=== PATIENT | female | born 1995 | race Hispanic/Latino ===

== ENCOUNTER 2017-12-07 22:43 | Emergency (ER) | payer BC ==
[2017-12-07] MEDS ORDERED: CHLORHEXIDINE GLUCONATE 4 % 15 ML UD TOP ONE (22:55)
[2017-12-07 23:02] VITALS: TEMP 99.1
--- NOTE | 2017-12-07 23:37 | ED.PDOC ---
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 Occurred: just prior to arrival Pain - Upper Extremity: moderate: Hand, right - finger nail right index finger Method of Injury: other - see hpi Improving Factors: rest Worsening Factors: movement Associated Symptoms: PAIN FINGER RT. INDEX Allergies/Adverse Reactions: Allergies NO KNOWN ALLERGY Allergy (Verified 12/07/17 23:02) Home Medications: Ambulatory Orders Cephalexin 1,000 mg PO BID 7 Days #30 cap 12/08/17 Review of Systems - Review of Systems Constitutional: States: no symptoms reported EENTM: States: no symptoms reported Respiratory: States: no symptoms reported Musculoskeletal: States: no symptoms reported Skin: States: see HPI Past Medical History (General) - Patient Medical History Hx Seizures: No Hx Stroke: No Hx Dementia: No Hx Asthma: No Hx of COPD: No Hx Cardiac Disorders: No Hx Congestive Heart Failure: No Hx Pacemaker: No Hx Hypertension: No Hx Thyroid Disease: No Hx Diabetes: No Hx Gastroesophageal Reflux: No Hx Renal Disease: No Hx Cancer: No Hx of HIV: No Hx Hepatitis C: No Hx MRSA: No Surgical History: no surgical history - Vaccination History Hx Tetanus, Diphtheria Vaccination: No - Social History Hx Alcohol Use: Yes - social - Female History Patient is a Female of Child Bearing Age (10 -59 yrs old): Yes Hx Last Menstrual Period: 11/09/17 Patient : No Family Medical History - Family History Mother Living Status: Still Living Physical Exam - Physical Exam General Appearance: Alert, Comfortable, No apparent distress Eyes, Ears, Nose, Throat Exam: normal ENT inspection Neck: supple Cardiovascular/Respiratory: regular rate, rhythm, no M/R/G, normal peripheral pulses, normal breath sounds Abdominal Exam: non-tender Back Exam: normal inspection, no CVA tenderness Elbow/Forearm Exam: normal inspection, no evidence of injury Wrist Exam: normal inspection, no evidence of injury Hand Exam: nail injury - avulsion fingernail right index finger, soft tissue tenderness Neuro/Tendon: normal sensation, normal motor functions, normal tendon functions , responds to pain, no evidence tendon injury Mental Status: alert, oriented x 3 Skin Exam: normal color, warm/dry Progress - Progress Progress: 12/08/17 00:21 Vital Signs - 8 hr 12/07/17 22:55 Temperature 99.1 F Pulse Rate [ 99 H monitor] Respiratory 16 Rate Blood Pressure 142/95 [Left Arm] O2 Sat by Pulse 98 Oximetry - EKG/XRAY/CT XRAY: right index finger -no fracture Departure - Departure Clinical Impression: Caught, crushed, jammed, or pinched between stationary objects, subsequent encounter, Avulsion of fingernail of right hand Time of Disposition: 00:23 Disposition: Discharge to Home or Self Care Condition: Good Departure Forms: ED Discharge - Pt. Copy, Patient Portal Self Enrollment Instructions: Nail Avulsion, Nail Avulsion (DC) Referrals: BRITTANY MOSQUERA MD [Primary Care Provider] - 1-2 Weeks Prescriptions: Cephalexin 1,000 mg PO BID 7 Days #30 cap Home Medications: Ambulatory Orders Cephalexin 1,000 mg PO BID 7 Days #30 cap 12/08/17 Additional Instructions: Follow up with your Work comp in am;may Take Aleve (over the counter) one tablet AM/PM for pain
[2017-12-07] MEDS ORDERED: CEPHALEXIN MONOHYDRATE 500 MG CAP PO ONE (23:38)
[2017-12-07] MEDS ORDERED: TETANUS,DIPHTHERIA,PERTUSSIS 1 EA SYG IM ONE (23:38)
--- NOTE | 2017-12-08 00:15 | RAD ---
3 VIEWS RIGHT SECOND FINGER RADIOGRAPHIC SERIES. INDICATIONS: Pain post injury COMPARISONS: No comparisons are available. FINDINGS: Soft tissue swelling without underlying fracture or dislocation. No radiopaque soft tissue foreign bodies or soft tissue gas. No lytic or blastic bone lesions. IMPRESSION: Soft tissue swelling with underlying bony abnormality, radiopaque foreign body or soft tissue gas. Electronically signed by: Williams Castro MD 12/08/2017 12:14 AM CDT
[2017-12-08] MEDS ORDERED: HYDROcodone 5MG/APAP 325MG 1 EA TAB PO ONE (00:29)
[2017-12-08] MEDS ORDERED: HYDROCOD/APAP 5/325 (ER DISP) #3 TAB PO ONE (00:29)
[2017-12-08] MEDS ORDERED: NEOMYCIN-BACITRACIN-POLYMYXIN 0.9 GM UD TOP ONE (00:34)
[2017-12-08 00:50] VITALS: BP 129/80; O2SAT 99
== END 2017-12-08 00:51 | disposition home or self-care (01) ==
LOC: ER 22:43
DX: S67.190A Crushing injury of right index finger, initial encounter (principal); S61.300A Unspecified open wound of right index finger with damage to nail, initial encounter; Z23 Encounter for immunization; W23.0XXA Caught, crushed, jammed, or pinched between moving objects, initial encounter; Y92.511 Restaurant or cafe as the place of occurrence of the external cause